=== PATIENT | male | born 1970 | race Caucasian/White ===

== ENCOUNTER 2016-10-22 22:27 | Observation (INO) ==
--- NOTE | 2016-10-23 00:18 | Emergency Department Note ---
Disposition Clinical Impression: Chest pain Qualifiers: Chest pain type: unspecified Qualified Code(s): R07.9 - Chest pain, unspecified Disposition: Admitted As Inpatient Condition: Good Referrals: Chicho Santiago MD [Primary Care Provider] - Forms: ED Satisfaction Letter Time of Disposition: 03:57 Chest Pain HPI - General Chief Complaint: ED Chest Pain Stated Complaint: chest pain/high BP Time Seen by Provider: 10/23/16 00:13 Source: patient Limitations: no limitations Vital Signs Reviewed: Yes Nursing Notes Reviewed: Yes - History of Present Illness Pt complaint: chest pain Duration: now resolved Pain Location: left chest Severity scale (1-10): 8 Pain Radiation: LUE, neck Improves with: nothing Worsens with: nothing Context: other (h/o HTN noncompliance) Associated symptoms: Reports: diaphoresis Treatments prior to arrival chest pain: none - Related Data Allergies Allergy/AdvReac Type Severity Reaction Status Date / Time No Known Allergies Allergy Verified 10/23/16 01:01 All systems ED: reviewed and negative except as stated. Constitutional: Denies: fever, chills Eyes: Denies: eye pain ENT ED: Denies: ear pain Cardiovascular: Denies: chest pain Respiratory: Denies: cough, dyspnea Gastrointestinal: Denies: abdominal pain, nausea, vomiting Genitourinary: Denies: dysuria Musculoskeletal: Denies: back pain Integumentary: Denies: rash Neurological: Denies: headache, weakness, numbness Psychiatric: Denies: anxiety, depression Endocrine: Denies: fatigue Hematological/Lymphatic: Denies: easy bleeding Allergic/Immunologic: Denies: facial swelling Chest Pain PMH - Past Medical History Medical history: Reports: hyperlipidemia, hypertension Psychiatric history: Reports: no psych history - Social History Smoking Status: Never smoker Alcohol use: Reports: occasionally Drug use: Reports: none Physical Exam - General Limitations: no limitations General appearance: alert, in no apparent distress - Head Head exam: normocephalic - Eye Eye exam: Present: EOMI - ENT ENT exam: normal exam, normal oropharynx - Neck Neck exam: Present: normal inspection, full ROM - Chest Chest inspection: Present: normal inspection, symmetric chest wall rise - Respiratory Respiratory exam: Present: normal lung sounds bilaterally, respiratory distress - Cardiovascular Cardiovascular exam: Present: regular rate, normal rhythm - Abdominal Exam Abdominal exam: Present: soft, Non-Tender - Extremities Exam Extremities exam: Present: normal inspection, full ROM - Back Exam Back exam: Present: normal inspection, full ROM - Neurological Exam Neurological exam: Present: alert, oriented X3 - Psychiatric Psychiatric exam: Present: normal affect, normal mood - Skin Skin exam: Present: warm, dry, intact, normal color. Absent: rash, cyanosis, diaphoresis Course Course Narrative: 46-year-old male nonsmoker presents with complaints of elevated blood pressure, and left-sided chest pain. He states that it first started as a cold sweat, feeling of paleness and then followed by the pain. He describes the pain in his anterior left shoulder upper extremity and left side neck. He denies any shortness of breath, nausea. He does admit to noncompliance with his lisinopril for his blood pressure medication. Pt declines pain meds at this time. Workup initiated. - Reevaluation(s) Reevaluation #1: Pt c/o worsening ROLLINS. Pt BP elevated. Will order clonidine and tylenol. Reevaluation #2: Patient headache improved. Labwork unremarkable. Chest x-ray unremarkable. Discussed with Dr. Hernandez who agreed for decision to place for cardiac rule out. Reevaluation #3: Patient discussed with and accepted by hospitalist Time: 03:57 Vital Signs Temperature 98.9 F 10/22/16 22:44 Pulse Rate 83 10/22/16 22:44 Respiratory Rate 16 10/22/16 22:44 Blood Pressure 195/116 10/22/16 22:44 O2 Sat by Pulse Oximetry 97 10/22/16 22:44 Temperature 98.9 F 10/22/16 22:44 Pulse Rate 61 10/23/16 01:41 Respiratory Rate 18 10/23/16 01:41 Blood Pressure 143/102 10/23/16 01:41 O2 Sat by Pulse Oximetry 99 10/23/16 01:41 Oxygen Delivery Oxygen Delivery Room Air Chest Pain - Lab Data Result diagrams: 10/23/16 00:21 10/23/16 00:21 Lab Results 10/23/16 10/23/16 10/23/16 Range/Units 00:21 00:21 00:21 WBC 7.2 (4.3-11.1) K/mcL RBC 5.58 H (4.19-5.50) M/mcL Hgb 16.4 (12.9-16.9) g/dL Hct 47.0 (37.5-50.1) % MCV 84.2 (83.0-100.0) fL MCH 29.4 (28.0-33.3) pg MCHC 34.9 (31.6-35.5) g/dL RDW 12.3 (11.5-14.5) % Plt Count 240 (140-400) K/mcL MPV 9.0 L (9.4-12.4) fL Immature Gran % 0.1 (0-4) % Seg Neutrophils % 60.4 % Lymphocytes % 22.8 % Monocytes % 11.1 % Eosinophils % 5.3 % Basophils % 0.3 % Neutrophils # 4.4 (1.6-8.9) K/mcL Lymphocytes # 1.6 (0.6-4.6) K/mcL Monocytes # 0.8 (0.0-1.3) K/mcL Eosinophils # 0.4 (0.0-0.6) K/mcL Basophils # 0.0 (0.0-0.2) K/mcL PT 10.5 (9.4-12.1) Seconds INR 1.0 APTT 30.0 (26.0-36.0) Seconds Sodium 140 (136-145) mEq/L Potassium 4.0 (3.5-4.5) mEq/L Chloride 103 (98-109) mEq/L Carbon Dioxide 27 (19-29) mEq/L BUN 12 (8-26) mg/dL Creatinine 0.96 (0.72-1.25) mg/dL Est GFR ( Amer) > 60 (> 60) Est GFR (Non-Af Amer) > 60 (> 60) BUN/Creatinine Ratio 13 (6-26) Glucose 105 H (70-99) mg/dL Calculated Osmolality 290 (280-300) Calcium 9.5 (8.6-10.8) mg/dL Troponin I (0-0.03) ng/mL 10/23/16 Range/Units 00:21 WBC (4.3-11.1) K/mcL RBC (4.19-5.50) M/mcL Hgb (12.9-16.9) g/dL Hct (37.5-50.1) % MCV (83.0-100.0) fL MCH (28.0-33.3) pg MCHC (31.6-35.5) g/dL RDW (11.5-14.5) % Plt Count (140-400) K/mcL MPV (9.4-12.4) fL Immature Gran % (0-4) % Seg Neutrophils % % Lymphocytes % % Monocytes % % Eosinophils % % Basophils % % Neutrophils # (1.6-8.9) K/mcL Lymphocytes # (0.6-4.6) K/mcL Monocytes # (0.0-1.3) K/mcL Eosinophils # (0.0-0.6) K/mcL Basophils # (0.0-0.2) K/mcL PT (9.4-12.1) Seconds INR APTT (26.0-36.0) Seconds Sodium (136-145) mEq/L Potassium (3.5-4.5) mEq/L Chloride (98-109) mEq/L Carbon Dioxide (19-29) mEq/L BUN (8-26) mg/dL Creatinine (0.72-1.25) mg/dL Est GFR ( Amer) (> 60) Est GFR (Non-Af Amer) (> 60) BUN/Creatinine Ratio (6-26) Glucose (70-99) mg/dL Calculated Osmolality (280-300) Calcium (8.6-10.8) mg/dL Troponin I 0.00 (0-0.03) ng/mL Heart Score - Score History: Moderately Suspicious EKG: Normal Age: 45-65 Risk Factors: Equal/Greater than 3 risk factor or history of atherosclerotic disease (HTN, HLD, obesity) Troponin: Less than normal limit HEART Score Total: 4
[2016-10-23 00:27] LABS: Basophils % 0.3 %; Eosinophils # 0.4 K/mcL (0.0-0.6); Eosinophils % 5.3 %; Hemoglobin 16.4 g/dL (12.9-16.9); Immature Granulocytes % 0.1 % (0-4); Lymphocytes # 1.6 K/mcL (0.6-4.6); Lymphocytes % 22.8 %; Mean Corpuscular HGB Conc 34.9 g/dL (31.6-35.5); Mean Corpuscular Hemoglobin 29.4 pg (28.0-33.3); Mean Corpuscular Volume 84.2 fL (83.0-100.0); Monocytes # 0.8 K/mcL (0.0-1.3); Monocytes % 11.1 %; Neutrophils # 4.4 K/mcL (1.6-8.9); Platelet Count 240 K/mcL (140-400); Red Blood Count 5.58 M/mcL (4.19-5.50); Red Cell Distribution Width 12.3 % (11.5-14.5); Segmented Neutrophils % 60.4 %
[2016-10-23 00:43] LABS: BUN/Creatinine Ratio 13 (6-26); Blood Urea Nitrogen 12 mg/dL (8-26); Calcium 9.5 mg/dL (8.6-10.8); Carbon Dioxide 27 mEq/L (19-29); Chloride 103 mEq/L (98-109); Glucose 105 mg/dL (70-99); Osmolality,Calculated 290 (280-300); Sodium 140 mEq/L (136-145); eGFR For African Americans > 60 (> 60); eGFR For Non-African Americans > 60 (> 60)
[2016-10-23] MEDS ORDERED: cloNIDine HCl 0.1 MG TABLET PO ONE (00:44)
[2016-10-23 00:46] LABS: Prothrombin Time 10.5 Seconds (9.4-12.1)
[2016-10-23] MEDS ORDERED: hydrALAZINE 10 MG TABLET PO PRN (05:48)
[2016-10-23] MEDS ORDERED: Acetaminophen 325 MG TABLET PO PRN (05:49)
[2016-10-23] MEDS ORDERED: Ondansetron 4 MG/2 ML VIAL IVP PRN (05:49)
[2016-10-23] MEDS ORDERED: Naloxone 0.4 MG/ML INJ IVP PRN (05:49)
[2016-10-23] MEDS ORDERED: *HR* Morphine 2 MG/ML SYRINGE IVP PRN (05:49)
--- NOTE | 2016-10-23 05:54 | Internal Med History&Physical ---
Date of Encounter: 10/23/16 Time of Encounter: 05:50 Internal Medicine - H&P: HPI Chief complaint: 2 SPELLS OF DIZZINESS, AND TRANSIENT NECK PAIN Admitted From: Emergency Dept Plans for Post Hospital Care: Home History of present illness: Mr. Sullivan is a 46 year old male with medical history significant for hypertension (non-compliant with medication) presents with 2 spells of dizziness , one of which was associated with left sided neck pain. He was convinced to come to hospital by his . He reports that bouts of dizziness was associated with diaphoresis. Both episodes were short lasting, both occurring at rest, no identified aggravation factors. He did not fall or collapse, he did not loss consciousness, no headaches, no fever, no chills or rigors. no vomiting, constipation or diarrhea, no chest pain. No previous cardiac work-up. Medical history: Reports: hyperlipidemia, hypertension Psychiatric history: Reports: no psych history Smoking Status: Never smoker Alcohol use: Reports: occasionally Drug use: Reports: none Family history: He reports no family history. ROS:Please see HPI. Positives and relevant negatives are detailed, system- symptom not mentioned assumed negative unless other stated. Vital Signs Temperature 98.9 F 10/22/16 22:44 Pulse Rate 83 10/22/16 22:44 Respiratory Rate 16 10/22/16 22:44 Blood Pressure 195/116 10/22/16 22:44 O2 Sat by Pulse Oximetry 97 10/22/16 22:44 Temperature 98.9 F 10/22/16 22:44 Pulse Rate 61 10/23/16 01:41 Respiratory Rate 18 10/23/16 01:41 Blood Pressure 143/102 10/23/16 01:41 O2 Sat by Pulse Oximetry 99 10/23/16 01:41 O/E: , not in distress HEENT: Not pale, anicteric, afebrile, acyanotic, no JVD, no carotid bruits Chest: CTAB, chest pain is not reproducible by palpation of movements of torso, or arms Heart/CVS: RRR, HS1/2, no murmur Abdomen: soft, non-tender, no masses. ADVERTISING SPECIALIST: AAO x 3, no gross focal neurological decifits, PERRL/EOMI : No flank tenderness, no CVA tenderness, no suprapubic tenderness Skin: No active skin lesion. Extremities: No pedal edema, normal pedal pulses, no calf tenderness. Lab Results 10/23/16 10/23/16 10/23/16 Range/Units 00:21 00:21 00:21 WBC 7.2 (4.3-11.1) K/mcL RBC 5.58 H (4.19-5.50) M/mcL Hgb 16.4 (12.9-16.9) g/dL Hct 47.0 (37.5-50.1) % MCV 84.2 (83.0-100.0) fL MCH 29.4 (28.0-33.3) pg MCHC 34.9 (31.6-35.5) g/dL RDW 12.3 (11.5-14.5) % Plt Count 240 (140-400) K/mcL MPV 9.0 L (9.4-12.4) fL Immature Gran % 0.1 (0-4) % Seg Neutrophils % 60.4 % Lymphocytes % 22.8 % Monocytes % 11.1 % Eosinophils % 5.3 % Basophils % 0.3 % Neutrophils # 4.4 (1.6-8.9) K/mcL Lymphocytes # 1.6 (0.6-4.6) K/mcL Monocytes # 0.8 (0.0-1.3) K/mcL Eosinophils # 0.4 (0.0-0.6) K/mcL Basophils # 0.0 (0.0-0.2) K/mcL PT 10.5 (9.4-12.1) Seconds INR 1.0 APTT 30.0 (26.0-36.0) Seconds Sodium 140 (136-145) mEq/L Potassium 4.0 (3.5-4.5) mEq/L Chloride 103 (98-109) mEq/L Carbon Dioxide 27 (19-29) mEq/L BUN 12 (8-26) mg/dL Creatinine 0.96 (0.72-1.25) mg/dL Est GFR ( Amer) > 60 (> 60) Est GFR (Non-Af Amer) > 60 (> 60) BUN/Creatinine Ratio 13 (6-26) Glucose 105 H (70-99) mg/dL Calculated Osmolality 290 (280-300) Calcium 9.5 (8.6-10.8) mg/dL Troponin I (0-0.03) ng/mL 10/23/16 Range/Units 00:21 WBC (4.3-11.1) K/mcL RBC (4.19-5.50) M/mcL Hgb (12.9-16.9) g/dL Hct (37.5-50.1) % MCV (83.0-100.0) fL MCH (28.0-33.3) pg MCHC (31.6-35.5) g/dL RDW (11.5-14.5) % Plt Count (140-400) K/mcL MPV (9.4-12.4) fL Immature Gran % (0-4) % Seg Neutrophils % % Lymphocytes % % Monocytes % % Eosinophils % % Basophils % % Neutrophils # (1.6-8.9) K/mcL Lymphocytes # (0.6-4.6) K/mcL Monocytes # (0.0-1.3) K/mcL Eosinophils # (0.0-0.6) K/mcL Basophils # (0.0-0.2) K/mcL PT (9.4-12.1) Seconds INR APTT (26.0-36.0) Seconds Sodium (136-145) mEq/L Potassium (3.5-4.5) mEq/L Chloride (98-109) mEq/L Carbon Dioxide (19-29) mEq/L BUN (8-26) mg/dL Creatinine (0.72-1.25) mg/dL Est GFR ( Amer) (> 60) Est GFR (Non-Af Amer) (> 60) BUN/Creatinine Ratio (6-26) Glucose (70-99) mg/dL Calculated Osmolality (280-300) Calcium (8.6-10.8) mg/dL Troponin I 0.00 (0-0.03) ng/mL CXR: No cardiopulmonary finding EKG: sinus arrhythmia, IMP Dizziness, probably vagal episodes considering bradycardia, suggesting he has a strong vagal tone, but will evaluate to exclude CAD and carotid artery disease. Uncontrolled hypertension, poor drug compliance. Sinus bradycardia, of unknown significance, may reflect strong baseline vagal tone PLAN Admit to telemetry Lisinopril 20mg po QD (DOUBLED HOME DOSE), IV hydralazine 10mg q6h prn for SBP> 160, dbp>100 Cycle troponin, serial EKG 2D ECHO, carotid dupplex, STRESS TEST. Optimize blood pressure control. Evaluate for cardiovascular risk factors. No indication for GI or DVT prophylaxis I discussed my findings and assessment with the patient, he verbalized understanding and is agreeable to admission. He is admitted to observation for evaluation of these new symptoms of unknown significance. Past Med Surg Social Fam HX - Past Medical History Medical history: hyperlipidemia, hypertension Psychiatric history: no psych history - Social History Smoking Status: Never smoker Smokeless Tobacco Status: No Alcohol use: occasionally Drug use: none - Family History Father History Unknown: Yes Living Status: Still Living Hx Family Cardiac Disorders: Yes (HTN) Mother Living Status: Still Living Hx Family Cardiac Disorders: Yes (HTN) Hx Family Endocrine Disorder: Yes (Thyroid Dx, DM) Internal Medicine - H&P: Meds Lisinopril [Zestril] 10 mg PO DAILY #30 tablet 10/23/16 [Rx] Loratadine [Claritin] 10 mg PO DAILY PRN 10/23/16 [History] Allergies No Known Allergies Allergy (Verified 10/23/16 10:00) All Systems PM: A 10-system review of systems was performed and is negative for pertinent findings except as documented above in the HPI. - Constitutional Vitals: Temp Pulse Resp BP Pulse Ox 97.8 F 51 12 108/67 96 10/23/16 05:22 10/23/16 05:22 10/23/16 05:22 10/23/16 05:22 10/23/16 05:22 Internal Med - H&P Results - Labs CBC & Chem 7: 10/23/16 00:21 10/23/16 00:21 - VTE Reasons for not Prescribing Prophylaxis: Treatment not Indicated - Low risk for VTE
[2016-10-23] MEDS ORDERED: Regadenoson 0.4 MG/5 ML SYRINGE IVP ONE (06:27)
[2016-10-23 06:34] LABS: Chol/HDL Ratio 3.9 (0-4.9)
[2016-10-23 06:54] LABS: Thyroid Stimulating Hormone 2.026 mcIU/mL (0.350-4.840)
--- NOTE | 2016-10-23 10:31 | ECHO - Doppler Report ---
Echocardiogram Name: Tito Sullivan Date of Study: 10/23/2016 Date: 1970 Ht: 72.0 in Medical Record#: [id number] Age: 46 Wt: 270.0 lb Gender: Male BSA: 2.42 Order #: [id number] Location: [facility] Room #: 3B39 Reading Physician: Rakan Burrell DO, FACC, ASUNCION, CARLOS A Manager Poker: Rosaura Tracy, [place], [facility] Ordering Physician: Boris Black MD Primary Physician: Chicho Santiago M.D. Indications: Dizziness Impressions: Sinus bradycardia. LVEF 60-65%. Normal LV chamber size, wall thickness and function. Normal left ventricular diastolic function. Normal right ventricular structure and function. No evidence of pulmonary hypertension. No significant valvular dysfunction. Left Ventricular Wall Motion: Rest Echo Findings All wall segments showed normal motion. Findings: Study Quality * Technically adequate exam. ECG Findings * Sinus bradycardia. Left Ventricle * LVEF 60-65%. * Normal LV chamber size, wall thickness and function. * Normal left ventricular diastolic function. Right Ventricle * Normal right ventricular structure and function. Left Atrium * Mildly dilated left atrium. Right Atrium * Mildly dilated right atrium. Interatrial Septum * No evidence of PFO by color Doppler. Aortic Valve * Trileaflet aortic valve with normal function. * No aortic regurgitation. * No aortic stenosis. Mitral Valve * Normal mitral valve structure and function. * No mitral stenosis. * Trace mitral regurgitation. Tricuspid Valve * Normal tricuspid valve structure and function. * Trace tricuspid regurgitation. * No evidence of pulmonary hypertension. Pulmonic Valve * Pulmonic valve is not well visualized. Aorta * Normally sized aortic root. Pericardium * The pericardium appears normal. IVC * Normal IVC dimensions and inspiratory collapse. Pulmonary Artery * Normal visualized portions of the main pulmonary artery. History Hypertension Measurements: BP: 112/ 78 2D Normal Values IVSd: 1.20 cm 0.6 - 1.0 cm LVIDd: 4.10 cm 3.7 - 5.6 cm LVPWd: 1.10 cm 0.6 - 1.1 cm LVIDs: 3.20 cm 1.5 - 3.6 cm AO: 3.15 cm < 4.0 cm LA: 3.40 cm 2.0 - 4.0cm %FS: 22.00 cm >25 % LA volume: 44 Mitral Valve Peak E:.70 m/sec Peak A:.41 m/sec E/A Ratio:1.7 Peak E' Lat Oscar:11.6 cm/s Peak E' Med Oscar:8.19 cm/s E/E' Lat Ratio:6 E/E' Med Ratio:8.6 Tricuspid Valve TV Regurg Peak Grad: 23.00mmHg TV Regurg Peak Oscar: 2.40m/sec Updated by Rakan Burrell DO, FACAbraham, ASUNCION, FASCAMILO on 10/23/2016 10:19:01 AM electronically signed on 10/23/2016 10:24:08 AM with status of Final Wall Motion Arroyo: 1=Normal, 2=Hypokinesis, 3=Akinesis, 4=Dyskinesis, 5=Aneurysmal, 6=Hyperkinetic, X=Not Visualized (Blank)=Missing
[2016-10-23 12:10] VITALS: BP 147/87
--- NOTE | 2016-10-23 12:27 | Discharge Summary ---
Date of Encounter: 10/23/16 Time of Encounter: 12:21 - Discharge Diagnosis (1) Chest pain Priority: Primary Status: Acute Qualifiers: Chest pain type: precordial pain Qualified Code(s): R07.2 - Precordial pain - Discharge Medications Prescriptions: Lisinopril [Zestril] 10 mg PO DAILY #30 tablet Home Medications: Lisinopril [Zestril] 10 mg PO DAILY #30 tablet 10/23/16 [Rx] Loratadine [Claritin] 10 mg PO DAILY PRN 10/23/16 [History] Allergies/Adverse Reactions: Allergies No Known Allergies Allergy (Verified 10/23/16 10:00) Procedures/tests Complete & Pending: Procedures Performed prior 72 hours Category Date Time Status EV carotid duplex imaging BI Routine Y 10/23/16 05:51 Completed EV echocardiogram Routine Y 10/23/16 05:48 Completed SP pharm nuclear stress Routine Y 10/23/16 05:49 Ordered Date of admission: 10/23/16 04:02 Primary care physician: Chicho Santiago MD Discharging clinician: Leon Tinoco Anticipated date of discharge: 10/23/16 - Patient Status Disposition: Home, Self-Care Condition: Good Functional capacity at discharge: independent ambulation Overall status at discharge: patient is back to baseline - Discharge Instructions Follow Up With: Chicho Santiago MD [Primary Care Provider] - 10/29/16 2:15 pm - Diet and Activity Activity: increase activity as tolerated Diet: advance to your usual diet Interval History: 46-year-old male nonsmoker presents with complaints of elevated blood pressure, and left-sided chest pain. He states that it first started as a cold sweat, feeling of paleness and then followed by the pain. He describes the pain in his anterior left shoulder upper extremity and left side neck. He denies any shortness of breath, nausea. He does admit to noncompliance with his lisinopril for his blood pressure medication. Pt declines pain meds at this time. Workup initiated. Hospital course: Mr. Sullivan is a 46 year old male admitted due to atypical chest pain, negative cardiac biomarkers. Echocardiogram was unremarkable. The patient was unable to undergo for stress test. At this point, there is no chest pain, no shortness of breath, no fever. Will discharge the patient home, we will resume his medication to control his hypertension. The patient states having noncompliant with his treatment. Patient will follow up as outpatient for continuity of care. He was explained about the plan, he expressed understanding. - Time Spent with Patient Total time spent providing and/or coordinating discharge services: Greater than 30 minutes - Constitutional Vitals: Temp Pulse Resp BP Pulse Ox 97.4 F L 97 17 147/87 95 10/23/16 12:09 10/23/16 12:09 10/23/16 12:09 10/23/16 12:09 10/23/16 12:09 - Head Head exam: Present: atraumatic, normocephalic - Eye Eye exam: Present: PERRL, conjuntiva pink, sclera anicteric Pupils: Present: PERRL - Neck Neck exam general surgery: Present: supple, trachea midline. Absent: lymphadenopathy - Respiratory Respiratory exam: Present: CTAB. Absent: accessory muscle use, rales, rhonchi, wheezes - Cardiovascular Cardiovascular exam: Present: RRR, +S1, +S2. Absent: diastolic murmur, gallop, rubs, systolic murmur - GI/Abdominal GI/Abdominal exam: Present: normal bowel sounds, soft, no peritoneal signs. Absent: distended, tenderness - Extremities Exam Extremities exam: Present: warm, radial pulses palpable and symetrical. Absent : calf tenderness, cyanotic, pedal edema - Neurological Exam Neurological exam: Present: CN II-XII intact, oriented X3, no focal deficits. Absent: pronater drift, facial droop, speech deficit - Skin Skin exam: Present: dry, intact - VTE Reasons for not Prescribing Prophylaxis: Treatment not Indicated - Low risk for VTE
--- NOTE | 2016-10-23 17:09 | Carotid Imaging Report ---
Carotid Duplex Patient Name:Tito Sullivan Order Number:[id number] Procedure Date:10/23/2016 Date:1970Age:46 yrs Gender:Male Lt BP:114 / 80 mmHg Rt.BP:112 / 78 mmHgHeart Rate: Location:[facility] Room #: 39 Risk Control Representative:Rosaura Tracy, RVT, CS Referring MD:Boris Black MD oil field caser:Chicho Santiago M.D. Reading MD:Cam Hines MD , FACS Primary Indications:Dizziness Risk Factors Yes/No Hypertension Yes Smoker Previous Yes Impressions: Findings: Bilateral carotid systems are essentially normal. Findings Carotid Duplex: [place]o scale imaging combined with Doppler flow analysis suggests normal findings bilaterally. Prior Study: No prior study available for comparison. Carotid Results Right PSV EDV Assessment Mid CCA 105 25 Normal Distal CCA 80 23 Normal Bifurcation 54 15 Normal Proximal ICA 59 27 Normal Mid ICA 73 34 Normal Distal ICA 62 26 Normal ECA 136 29 Normal Vertebral Artery 48 12 Antegrade Flow Left PSV EDV Assessment Proximal CCA 149 33 Normal Mid CCA 123 35 Normal Distal CCA 118 30 Normal Bifurcation 101 36 Normal Proximal ICA 77 29 Normal Mid ICA 71 39 Normal Distal ICA 74 40 Normal ECA 114 25 Normal Vertebral Artery 43 12 Antegrade Flow Ratio's Right ICA/CCA Ratio: 0.56 ICA/CCA Values: 59/105 Left ICA/CCA Ratio: 0.62 ICA/CCA Values: 77/123 Updated by Cam Hines MD, FACS on 10/23/2016 5:05:25 PM Cam Hines MD electronically signed on 10/23/2016 5:05:50 PM with status of Final
--- NOTE | 2016-10-24 16:09 | Electrocardiograph Report ---
[facility] Test Date: 2016-10-22 Pat Name: Tito Sullivan Department: 102 Room: 3B39 Gender: M Aboriginal Liaison Officer: Sarah : 1970 Requested By: Leon Tinoco Order Number: [id number] Reading MD: Rakan Burrell DO Measurements Intervals [place] Rate: 82 P: 40 CO: 175 QRS: -30 QRSD: 113 T: 63 QT: 401 QTc: 439 Interpretive Statements SINUS RHYTHM WITH SINUS ARRHYTHMIA BORDERLINE LEFT AXIS DEVIATION INTRAVENTRICULAR CONDUCTION DELAY Electronically Signed On 10-24-16 16:08:35 EST by Rakan Burrell DO
== END 2016-10-23 13:35 | disposition home or self-care (01) ==
LOC: EMEROO 22:27 → 3BNU 22:27 → SUATTDRO 10-23 04:02 → 3BNU 10-23 05:11
PROVIDERS: ADMIT Family Medicine; ATTEND Internal Medicine